=== PATIENT | female | born 1970 | race Two or more races ===

== ENCOUNTER 2024-06-24 14:03 | Inpatient (IN) | payer MEDICAID, OTHER ==
[~2024-06-24] VITALS: Ht 167.6 cm; Wt 72.0 kg
[2024-06-24 14:29] LABS: Basophils # (auto) 0.1 10 ^3/uL (0-0.2); Basophils % (auto) 1.2 % (0.0-2.0); Eosinophils # (auto) 0 10 ^3/uL (0-0.8); Eosinophils % (auto) 0.3 % (0.0-7.0); Hematocrit 40.5 % (36.0-46.0); Lymphocytes # (auto) 2.4 10 ^3/uL (0.4-5.4); Lymphocytes % (auto) 24.7 % (10.0-50.0); Mean Corpuscular Hemoglobin 30.4 pg (28.0-32.0); Mean Corpuscular Hgb Conc. 34.6 g/dL (32.0-36.0); Mean Corpuscular Volume 88.1 fL (80.0-100.0); Monocytes # (auto) 0.4 10 ^3/uL (0-1.3); Monocytes % (auto) 4.2 % (0.0-12.0); Neutrophils # (auto) 6.7 10 ^3/uL (1.6-8.6); Neutrophils % (auto) 69.6 % (37.0-80.0); Nucleated Red Blood Cells % 0.1 %; Platelet Count (auto) 279 10^3/uL (140-450); Red Cell Distribution Width 13.7 % (11.8-14.3); White Blood Cell 9.6 10^3/uL (4.4-10.8)
--- NOTE | 2024-06-24 14:31 | ED.PDOC ---
HPI Comments 53 y.o female presents to the ED for a chief complaint of sternal chest pain associated with SOB that started this morning while at work. Patient describes pain as a pressure/tightness sensation, is non radiating, constant, and rating a 8/10 on the pain scale. Patient denies any nausea, vomiting, diarrhea, palpitations, fever, chills, or cardiac history. PMH of ovarian cysts. Denies any substance, alcohol or tobacco use. 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 Family History Family History: Reviewed,noncontributory to illness, No family hx of Cancer, No family hx of DM, No family hx of Heart rebel, No family hx of HTN, No family hx ofKidney rebel, No family hx of Liver rebel, No family hx of Lung rebel, No family hx of Stroke Social History Smoker: Non-Smoker Alcohol: Denies ETOH Use Drugs: Denies Drug Use Lives In: Home Constitutional: denies: chills, diaphoresis, fatigue, fever, malaise, sweats, weakness, others EENTM: denies: blurred vision, double vision, ear bleeding, ear discharge, ear drainage, ear pain, ear ringing, eye pain, eye redness, hearing loss, mouth pain, mouth swelling, nasal discharge, nose bleeding, nose congestion, nose pain, photophobia, tearing, throat pain, throat swelling, voice changes, others Respiratory: reports: SOB at rest, shortness of breath; denies: cough, hemoptysis, orthopnea, SOB with excertion, stridor, wheezing, others Cardiovascular: reports: chest pain; denies: dizzy spells, diaphoresis, Dyspnea on exertion, edema, irregular heart beat, left arm pain, lightheadedness, palpitations, PND, syncope, others Gastrointestinal: denies: abdomen distended, abdominal pain, blood streaked bowels, constipated, diarrhea, dysphagia, difficulty swallowing, hematemesis, melena, nausea, poor appetite, poor fluid intake, rectal bleeding, rectal pain, vomiting, others Genitourinary: denies: abnormal vagina bleeding, burning, dyspareunia, dysuria, flank pain, frequency, hematuria, incontinence, pain, , vagina discharge, urgency, others Neurological: denies: dizziness, fainting, headache, left sided numbness, left sided weakness, numbness, paresthesia, pre-existing deficit, right sided numbness, right sided weakness, seizure, speech problems, tingling, tremors, weakness, others Musculoskeletal: denies: back pain, gout, joint pain, joint swelling, muscle pain, muscle stiffness, neck pain, others Integumetry: denies: bruises, change in color, change in hair/nails, dryness, laceration, lesions, lumps, rash, wounds, others Allergic/Immunocompromised: denies: Difficulty Healing, Frequent Infections, Hives, Itching, others Hematologic/Lymphatic: denies: anemia, blood clots, easy bleeding, easy bruising, swollen glands, others Endocrine: denies: excessive hunger, excessive sweating, excessive thirst, excessive urination, flushing, intolerance to cold, intolerance to heat, unexplained weight gain, unexplained weight loss, others Psychiatric: denies: anxiety, bipolar disorder, depression, hopeless, panic disorder, schizophrenia, sleepless, suicidal, others All Other Systems: Reviewed and Negative Physical Exam General Appearance: Moderate Distress HEENT: Normal ENT Inspection, Pharynx Normal, TMs Normal Neck: Full Range of Motion, Non-Tender, Normal, Normal Inspection Respiratory: Chest Non-Tender, Lungs Clear, No Accessory Muscle Use, No Respiratory Distress, Normal Breath Sounds Cardiovascular: No Edema, No JVD, No Murmur, No Gallop, Normal Peripheral Pulses, Regular Rate/Rhythm Breast Exam: Deferred Gastrointestinal: No Organomegaly, Non Tender, No Pulsatile Mass, Normal Bowel Sounds, Soft Genitalia: Deferred Pelvic: Deferred Rectal: Deferred Extremities: No calf tenderness, Normal capillary refill, Normal inspection, Normal range of motion, Non-tender, No pedal edema Musculoskeletal : Apperance: Normal Neurologic: Alert, 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 Was a procedure done?: No CP Differential Dx Differential Diagnosis: A-fib, A-Flutter, Angina, Anxiety / Panic Attack, Atrial Dysrhythmia, Electrolyte Disorder, Sinus Tachycardia Differential Diagnosis: Angina, Gastritis, Myocardial Infarction, Pericarditis X-Ray, Labs, Meds, VS Vital Signs Date Time Temp Pulse Resp B/P (MAP) Pulse Ox O2 Delivery O2 Flow Rate FiO2 06/24/24 14:16 98.4 94 18 152/95 (114) 99 Lab Test 06/24/24 14:23 Range/Units White Blood Count 9.6 4.4-10.8 10^3/uL Red Blood Count 4.60 4.0-5.20 10^6/uL Hemoglobin 14.0 12.2-16.2 g/dL Hematocrit 40.5 36.0-46.0 % Mean Corpuscular Volume 88.1 80.0-100.0 fL Mean Corpuscular Hemoglobin 30.4 28.0-32.0 pg Mean Corpuscular Hemoglobin Concent 34.6 32.0-36.0 g/dL Red Cell Distribution Width 13.7 11.8-14.3 % Platelet Count 279 140-450 10^3/uL Mean Platelet Volume 9.0 6.9-10.8 fL Neutrophils (%) (Auto) 69.6 37.0-80.0 % Lymphocytes (%) (Auto) 24.7 10.0-50.0 % Monocytes (%) (Auto) 4.2 0.0-12.0 % Eosinophils (%) (Auto) 0.3 0.0-7.0 % Basophils (%) (Auto) 1.2 0.0-2.0 % Neutrophils # (Auto) 6.7 1.6-8.6 10 ^3/uL Lymphocytes # (Auto) 2.4 0.4-5.4 10 ^3/uL Monocytes # (Auto) 0.4 0-1.3 10 ^3/uL Eosinophils # (Auto) 0 0-0.8 10 ^3/uL Basophils # (Auto) 0.1 0-0.2 10 ^3/uL Nucleated Red Blood Cells 0.1 % Prothrombin Time Pending Prothrombin Time INR Pending Activated Partial Thromboplast Time Pending Sodium Level Pending Potassium Level Pending Chloride Level Pending Carbon Dioxide Level Pending Anion Gap Pending Blood Urea Nitrogen Pending Creatinine Pending Glomerular Filtration Rate Calc Pending BUN/Creatinine Ratio Pending Serum Glucose Pending Calcium Level Pending Magnesium Level Pending Total Bilirubin Pending Aspartate Amino Transferase (AST) Pending Alanine Aminotransferase (ALT) Pending Alkaline Phosphatase Pending Troponin I High Sensitivity Pending B-Type Natriuretic Peptide Pending Total Protein Pending Albumin Pending Patient alert. Complaining of chest pain. Vitals stable. Answering all questions. Chest pain upon light work. WBC within normal limits. Hemoglobin within normal limits. Blood pressure slightly elevated. Was given clonidine. Was given aspirin. Was given nitro. Reviewed her history. Explained to the patient. Continue cardiac monitoring. Time of 1ST Reevaluation: 14:35 Reevaluation 1ST: Unchanged Consultation: Surgery Patient Education/Counseling: Diagnosis, Treatment, Prognosis Family Education/Counseling: No Family Present Departure 1 Departure Time of Disposition: 14:36 Impression: Primary Impression: Chest pain of unknown etiology Additional Impression: Hypertension Qualified Codes: I10 - Essential (primary) hypertension Disposition: ADMITTED INPATIENT Admit to: Med Surg Condition: Guarded Critical Care Note Critical Care Time?: Yes (45 min-critical care time only) Stability Stability form required: No Heart Score Heart Score: Heart Score Response (Comments) Value History Slightly Suspicious 0 EKG Normal 0 Age 45-64 1 Risk Factors 1 or 2 risk factors 1 Troponin Normal limit 0 Total 2 I personally scribed for JACK CANTU MD ([email or web address]) on 06/24/24 at 14:31. Electronically submitted by Desiree Smith ([facility]). JACK CANTU MD Jun 24, 2024 14:31
--- NOTE | 2024-06-24 14:46 | DVH ---
XY CHEST TWO VIEWS ROUTINE CLINICAL HISTORY: CHEST PAIN COMPARISON: None TECHNIQUE: Frontal and lateral view of the chest was obtained FINDINGS: Lines and Tubes: None Lungs: No focal consolidation. Pleura: No effusion. No pneumothorax. Cardiomediastinal contours: Unremarkable Bones: No acute osseous abnormality. IMPRESSION: 1. No acute cardiopulmonary disease.
[2024-06-24 14:49] LABS: INR 0.97 (0.9-1.15); Partial Thromboplastin Time 27.3 SEC (24.5-34.5); Prothrombin Time 10.3 sec (9.3-11.8)
[2024-06-24 14:53] LABS: Alanine Aminotransferase 42 U/L (7-40); Albumin 4.6 g/dL (3.2-4.8); Alkaline Phosphatase 151 U/L (46-116); Anion Gap 10 (5-15); Aspartate Aminotransferase 30 U/L (13-40); BUN/Creatinine Ratio 22.7 (10.0-20.0); Blood Urea Nitrogen 17 mg/dL (9-23); Calcium 9.7 mg/dL (8.7-10.4); Carbon Dioxide 24 mmol/L (20-31); Chloride 107 mmol/L (98-107); Glucose 151 mg/dL (74-106); Potassium 3.9 mmol/L (3.5-5.1); Sodium 141 mmol/L (136-145)
[2024-06-24 14:54] LABS: Bilirubin, Total 0.3 mg/dL (0.2-1.0); Total Protein 7.1 g/dL (5.7-8.2)
[2024-06-24 15:36] VITALS: PULSE 83; RESP 18; O2SAT 99
[2024-06-24] MEDS: ASPirin 325 MG TAB PO ONE (15:43)
[2024-06-24] MEDS: NITROGLYCERIN 0.4 MG SL TAB SL ONE (15:44)
[2024-06-24] MEDS ORDERED: NITROGLYCERIN 0.4 MG SL TAB SL PRN ×2 (18:45)
[2024-06-24] MEDS ORDERED: ONDANSETRON HCL 4 MG/2 ML VIAL IV PRN (18:45)
[2024-06-24] MEDS ORDERED: ACETAMINOPHEN 325 MG TAB PO PRN (18:45)
--- NOTE | 2024-06-24 18:51 | DVHHP2 ---
History of Present Illness Reason for Visit: Chest pain History of Present Illness 53-year-old female past medical history deny surgical history operations chief patient complains of midsternal chest pain that started this morning while she was at work. Patient described the pain as a pressure tightness sensation no radiation of the pain she took ibuprofen without help her symptoms she denies any nausea or vomiting diarrhea no palpitations no fever no chills. Nothing makes her pain better nothing makes it worse. When evaluating patient's labs and imaging CBC unremarkable. Glucose was slightly elevated at 151 chest x-ray unremarkable alkaline phosphatase 151 troponin was negative BNP was negative. With these findings we will admit patient ask for Cardiology consult Past Medical History Denies any medical history Past Surgical History Family History Reviewed, non-contributory to the management of this case. Past Social History The patient lives at home, denies smoking, alcohol or illicit drugs abuse. Review of Systems Constitutional: No: Fever, Chills, Sweats, Weakness, Malaise, Other Eyes: No: Pain, Vision change, Conjunctivae inflammation, Eyelid inflammation, Other, Redness ENT: No: Ear pain, Ear discharge, Nose pain, Nose discharge, Nose congestion, Mouth pain, Mouth swelling, Throat pain, Throat swelling, Other Respiratory: No: Cough, Dry, Shortness of breath, SOB with excertion, Wheezing, Hemoptysis, Pleuritic Pain, Sputum, Wheezing, Other Cardiovascular: Chest Pain; No: Palpitations, Orthopnea, Paroxysmal Noc. Dyspnea, Edema, Lt Headedness, Other Gastrointestinal: No: Nausea, Vomiting, Abdominal Pain, Diarrhea, Constipation, Melena, Hematochezia, Other Genitourinary: No Dysuria, No Frequency, No Incontinence, No Hematuria, No Retention, No Other Musculoskeletal: No: other, neck pain, shoulder pain, arm pain, back pain, hand pain, leg pain, foot pain Skin: No: Rash, Lesions, Jaundice, Bruising, Other Neurological: No: Weakness, Numbness, Incoordination, Change in speech, Confusion, Seizures, Other Allergies: Coded Allergies: NO KNOWN ALLERGIES (Unverified , 06/24/24) Exam Vital Signs Vital Signs Date Time Temp Pulse Resp B/P (MAP) Pulse Ox O2 Delivery O2 Flow Rate FiO2 06/24/24 17:36 70 16 133/64 (87) 99 06/24/24 15:36 99.1 99.1 06/24/24 15:36 Room Air* 0 21 General Appearance: Alert, Oriented X3, Cooperative, No acute distress HEENT: Atraumatic, PERRLA, EOMI, Mucous membr. moist/pink Respiratory: Clear to auscultation, Normal air movement Cardiovascular: Regular rate, Normal S1, Normal S2, No murmurs Abdominal: Normal bowel sounds, Soft, No tenderness, No hepatospenomegaly, No masses Extremities: No clubbing, No cyanosis, No edema, Normal pulses, No tenderness/swelling Skin: No rashes, No breakdown, No significant lesion Neuro: Normal speech, Strength at 5/5 X4 ext, Normal tone, Sensation intact, Cranial nerves 3-12 NL Psych/Mental Status: Mental status NL, Mood NL Labs/Xrays Chest x-ray unremarkable I reviewed labs, imaging CT scan abdomen pelvis, EKG and all diagnostic studies on this patient from ED records and the medical chart Labs Test 06/24/24 15:06 06/24/24 14:23 Range/Units Troponin I High Sensitivity < 3 L </=34 ng/L White Blood Count 9.6 4.4-10.8 10^3/uL Red Blood Count 4.60 4.0-5.20 10^6/uL Hemoglobin 14.0 12.2-16.2 g/dL Hematocrit 40.5 36.0-46.0 % Mean Corpuscular Volume 88.1 80.0-100.0 fL Mean Corpuscular Hemoglobin 30.4 28.0-32.0 pg Mean Corpuscular Hemoglobin Concent 34.6 32.0-36.0 g/dL Red Cell Distribution Width 13.7 11.8-14.3 % Platelet Count 279 140-450 10^3/uL Mean Platelet Volume 9.0 6.9-10.8 fL Neutrophils (%) (Auto) 69.6 37.0-80.0 % Lymphocytes (%) (Auto) 24.7 10.0-50.0 % Monocytes (%) (Auto) 4.2 0.0-12.0 % Eosinophils (%) (Auto) 0.3 0.0-7.0 % Basophils (%) (Auto) 1.2 0.0-2.0 % Neutrophils # (Auto) 6.7 1.6-8.6 10 ^3/uL Lymphocytes # (Auto) 2.4 0.4-5.4 10 ^3/uL Monocytes # (Auto) 0.4 0-1.3 10 ^3/uL Eosinophils # (Auto) 0 0-0.8 10 ^3/uL Basophils # (Auto) 0.1 0-0.2 10 ^3/uL Nucleated Red Blood Cells 0.1 % Prothrombin Time 10.3 9.3-11.8 sec Prothrombin Time INR 0.97 0.9-1.15 Activated Partial Thromboplast Time 27.3 24.5-34.5 SEC Sodium Level 141 136-145 mmol/L Potassium Level 3.9 3.5-5.1 mmol/L Chloride Level 107 98-107 mmol/L Carbon Dioxide Level 24 20-31 mmol/L Anion Gap 10 5-15 Blood Urea Nitrogen 17 9-23 mg/dL Creatinine 0.75 0.550-1.02 mg/dL Glomerular Filtration Rate Calc 96 >90 mL/min BUN/Creatinine Ratio 22.7 H 10.0-20.0 Serum Glucose 151 H 74-106 mg/dL Calcium Level 9.7 8.7-10.4 mg/dL Magnesium Level 2.0 1.6-2.6 mg/dL Total Bilirubin 0.3 0.2-1.0 mg/dL Aspartate Amino Transferase (AST) 30 13-40 U/L Alanine Aminotransferase (ALT) 42 H 7-40 U/L Alkaline Phosphatase 151 H 46-116 U/L B-Type Natriuretic Peptide 34.21 0-100 pg/mL Total Protein 7.1 5.7-8.2 g/dL Albumin 4.6 3.2-4.8 g/dL Assessment/Plan Assessment/Plan acute chest pain r/o nstemi ekg no stemi trop negative ordered Cards consult pending eval and recs ordered asa atorvastatin ordered Echocardiogram follow-up results ordered morphine as needed for pain, ordered nitro prn acute elevation in blood pressure without dx of htn ordered metoprolol Acute elevation in blood glucose If elevated in a.m. labs can consider Accu-Chek with AC and HS with sliding scale fen/ppx no dvt ppx since ptis ambulatory scd no gi ppx since no hx of gerds or gi bleed diet plan admit to tele cards consult Plan discussed with: Patient My Orders Orders - KEVON MCNEILL DNP Procedure Category Date Status Time Admit ADMIT 06/24/24 Verified 18:39 Code Status CODE 06/24/24 Verified 18:39 Vital Signs [facility] 06/24/24 Verified 18:39 Grain Broker [facility] 06/24/24 Verified 18:39 May Elevate Hob ____ [facility] 06/24/24 Verified Degrees 18:39 Cardiac DIET 06/25/24 Verified Diet-2gna,Lofat,Lochol Breakfast Aspirin Tablet PHA 06/25/24 Verified 10:00 Lipitor 40mg Hs PHA 06/24/24 Verified Hi-Intensity 22:00 Metoprolol Tartrate PHA 06/24/24 Verified Tablet (Lopressor Ta 22:00 Acetaminophen Tablet PHA 06/24/24 Verified (Tylenol Tablet) 18:45 Docusate Sodium PHA 06/25/24 Verified Capsule (Colace 10:00 Complete Blood Count LAB 06/25/24 Verified 04:00 Comprehensive LAB 06/25/24 Verified Metabolic Panel 04:00 Prothrombin Time W/ LAB 06/24/24 Verified INR 18:39 Echo 2d Mode Cardiac US 06/24/24 Verified DOP 18:39 Nitroglycerin [facility] 06/24/24 Verified Sublingual (Ntrostat 18:45 Ondansetron Hcl [facility] 06/24/24 Verified (Zofran) 18:45 Magnesium LAB 06/24/24 Verified 18:39 Electrocardigram EKG 06/24/24 Verified 18:39 Troponin-I Hs LAB 06/24/24 Verified 18:39 Cardiac [facility] 06/24/24 Verified Rehabilitation - Outpa Nitroglycerin [facility] 06/24/24 Verified Sublingual (Ntrostat 18:45 Stat Ekg For Chest [facility] 06/24/24 Verified Pain 18:39 Notify Md Of Changes [facility] 06/24/24 Verified From Base 18:39 Health Policy Manager For [facility] 06/24/24 Verified 24 Hours 18:39 Emergency Dysrhythmia [facility] 06/24/24 Verified Protocol 18:39 Rhythm Strips Once [facility] 06/24/24 Verified Every Shift 18:39 Oxygen By Nasal RT 06/24/24 Verified Cannula 18:39 * Cardiology Consult CONS 06/24/24 Verified 18:39 Date of Service: Jun 24, 2024 Billing Provider: KEVON MCNEILL DNP Common Visit Codes: [id number] INP/OBS CARE (HIGH) KEVON MCNEILL DNP Jun 24, 2024 18:50
--- NOTE | 2024-06-24 18:54 | ECG ---
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
[2024-06-24 19:13] LABS: Urine Bacteria None Seen /hpf (None Seen)
[2024-06-24 19:18] LABS: Urine Blood Negative /uL (Negative); Urine Clarity Clear (Clear); Urine Color Light-Yellow (Yellow); Urine Mucus FEW (None Seen); Urine Protein, UAD Negative (Negative); Urine Urobilinogen Normal (Negative); Urine WBC 4 /hpf (0 - 5); Urine pH 7.5 (5.0-9.0)
[2024-06-24 19:25] LABS: INR 0.97 (0.9-1.15); Prothrombin Time 10.3 sec (9.3-11.8)
[2024-06-24 19:45] VITALS: PULSE 72; RESP 18; O2SAT 98
[2024-06-24 22:17] VITALS: BP 131/60; PULSE 67; PULSE 76; RESP 18; RESP 20; TEMP 97.6; O2SAT 97; O2SAT 98
[2024-06-24 22:30] VITALS: BP 131/60; PULSE 76; RESP 20; TEMP 97.6; O2SAT 97
[2024-06-24] MEDS: ATORVASTATIN 20 MG TAB PO SCH (22:41)
[2024-06-24] MEDS: METOPROLOL TARTRATE 25 MG TAB PO SCH (22:42)
[2024-06-25] VITALS (8 sets, daily range): BP systolic 116–133; BP diastolic 56–72; PULSE 64–99; RESP 16–20; TEMP 97.5–98.2; O2SAT 93–98
[2024-06-25 05:35] LABS: Basophils # (auto) 0 10 ^3/uL (0-0.2); Basophils % (auto) 0.5 % (0.0-2.0); Eosinophils # (auto) 0.1 10 ^3/uL (0-0.8); Hematocrit 38.9 % (36.0-46.0); Hemoglobin 13.4 g/dL (12.2-16.2); Lymphocytes # (auto) 2.1 10 ^3/uL (0.4-5.4); Lymphocytes % (auto) 33.8 % (10.0-50.0); Mean Corpuscular Hemoglobin 30.5 pg (28.0-32.0); Mean Corpuscular Hgb Conc. 34.3 g/dL (32.0-36.0); Mean Corpuscular Volume 88.8 fL (80.0-100.0); Monocytes # (auto) 0.6 10 ^3/uL (0-1.3); Monocytes % (auto) 9.3 % (0.0-12.0); Neutrophils # (auto) 3.4 10 ^3/uL (1.6-8.6); Neutrophils % (auto) 55.4 % (37.0-80.0); Platelet Count (auto) 260 10^3/uL (140-450); Red Blood Cells 4.38 10^6/uL (4.0-5.20); Red Cell Distribution Width 13.6 % (11.8-14.3); White Blood Cell 6.1 10^3/uL (4.4-10.8)
[2024-06-25 05:52] LABS: Alanine Aminotransferase 35 U/L (7-40); Albumin 4.2 g/dL (3.2-4.8); Alkaline Phosphatase 130 U/L (46-116); Anion Gap 8 (5-15); Aspartate Aminotransferase 23 U/L (13-40); BUN/Creatinine Ratio 17.4 (10.0-20.0); Bilirubin, Total 0.8 mg/dL (0.2-1.0); Blood Urea Nitrogen 12 mg/dL (9-23); Calcium 9.5 mg/dL (8.7-10.4); Carbon Dioxide 25 mmol/L (20-31); Chloride 108 mmol/L (98-107); Glucose 96 mg/dL (74-106); Potassium 3.8 mmol/L (3.5-5.1); Sodium 141 mmol/L (136-145); Total Protein 6.7 g/dL (5.7-8.2)
[2024-06-25] MEDS: DOCUSATE SOD 100 MG CAP PO SCH (08:51)
[2024-06-25] MEDS: ASPirin 81 mg TAB PO SCH (08:52)
--- NOTE | 2024-06-25 12:22 | DVHINCON2 ---
Date Seen: Jun 25, 2024 Referring Physician Enrrique SHIELDS Reason for Consultation Chest Pain History of Present Illness 53-year-old female with no significant past medical history presented to the hospital chest pain. Patient states that she awoke in the morning started having some retrosternal, pressure tightness, nonradiating chest pain with pounding palpitations. Patient states pain associated with some shortness of breath at times. Patient has been having left jaw pain due to infected to and has been taking ibuprofen and noted she started to have increased shortness of breath with exertion for a couple weeks now. Denies taking any medication for her heart nor having any previous cardiac workup in the past. Denies any significant family cardiac history. Patient also denies any alcohol, tobacco, or illicit drug use. Upon evaluation in the ER troponin trending normal x3. CXR negative for any cardiopulmonary disease. EKG reviewed and shows sinus rhythm at 97 beats per minute, no acute ST abnormality noted. Past Medical History Denies previous medical history Past Surgical History Denies previous surgeries Family History: Hypertension G8 FATHER Malignant neoplasm of breast G8 MOTHER Family History Denies pertinent family cardiac history Social History Denies alcohol, tobacco, or illicit drug use Allergies: Coded Allergies: NO KNOWN ALLERGIES (Unverified , 06/24/24) Current Medications Current Medications Medications (Trade) Dose Ordered Sig/Varinder Route PRN Reason Start Time Stop Time Status Last Admin Aspirin 81 mg DAILY PO 06/25/24 10:00 06/25/24 08:52 Atorvastatin Calcium (Lipitor) 40 mg HS PO 06/24/24 22:00 06/24/24 22:41 Metoprolol Tartrate (Lopressor Tablet) 12.5 mg Q12HR PO 06/24/24 22:00 06/25/24 08:52 Acetaminophen (Tylenol Tablet) 325 mg Q4HP PRN PO FOR HEADACHE 06/24/24 18:45 Docusate Sodium (Colace Capsule) 100 mg DAILY PO 06/25/24 10:00 06/25/24 08:51 Nitroglycerin (Ntrostat Sublingual) 0.4 mg Q5MINP PRN SL FOR CHEST PAIN 06/24/24 18:45 Ondansetron HCl (Zofran) 4 mg Q4HP PRN IV NAUSEA / VOMITING 06/24/24 18:45 Nitroglycerin (Ntrostat Sublingual) 0.4 mg Q5MINP PRN SL FOR CHEST PAIN 06/24/24 18:45 06/24/24 18:57 DC Review of Systems Constitutional: No: Fever, Chills, Sweats, Weakness, Malaise, Other Eyes: No: Pain, Vision change, Conjunctivae inflammation, Eyelid inflammation, Other, Redness ENT: No: Ear pain, Ear discharge, Nose pain, Nose discharge, Nose congestion,, Mouth swelling, Throat pain, Throat swelling, Other positive: Mouth pain Respiratory: No: Cough, Dry, Shortness of breath, SOB with exertion, Wheezing, Hemoptysis, Pleuritic Pain, Sputum, Wheezing, Other Cardiovascular: ; No: , Orthopnea, Paroxysmal Noc. Dyspnea, Edema, Lt H eadedness, Other positive: Chest Pain Palpitations Gastrointestinal: No: Nausea, Vomiting, Abdominal Pain, Diarrhea, Constipation, Melena, Hematochezia, Other Genitourinary: No Dysuria, No Frequency, No Incontinence, No Hematuria, No Retention, No Other Musculoskeletal: neck pain; No: other, shoulder pain, arm pain, back pain, hand pain, leg pain, foot pain Skin: No: Rash, Lesions, Jaundice, Bruising, Other Neurological: Other (Dizziness, headache.); No: Weakness, Numbness, In coordination, Change in speech, Confusion, Seizures Vital Signs Vital Signs Date Time Temp Pulse Resp B/P (MAP) Pulse Ox O2 Delivery O2 Flow Rate FiO2 06/25/24 09:00 97.9 64 20 123/69 (87) 97 97.9 06/24/24 22:17 Room Air* 0 21 Physical Exam Constitutional: No: Fever, Chills, Sweats, Weakness, Malaise, Other Eyes: No: Pain, Vision change, Conjunctivae inflammation, Eyelid inflammation, Other, Redness ENT: No: Ear pain, Ear discharge, Nose pain, Nose discharge, Nose congestion, Mouth pain, Mouth swelling, Throat pain, Throat swelling, Other Respiratory: No: Cough, Dry, Shortness of breath, SOB with exertion, Wheezing, Hemoptysis, Pleuritic Pain, Sputum, Wheezing, Other Cardiovascular: ; No: Chest Pain Palpitations, Orthopnea, Paroxysmal Noc. Dyspnea, Edema, Lt Headedness, Other Gastrointestinal: No: Nausea, Vomiting, Abdominal Pain, Diarrhea, Constipation, Melena, Hematochezia, Other Genitourinary: No Dysuria, No Frequency, No Incontinence, No Hematuria, No Retention, No Other Musculoskeletal: neck pain; No: other, shoulder pain, arm pain, back pain, hand pain, leg pain, foot pain Skin: No: Rash, Lesions, Jaundice, Bruising, Other Neurological: Other (Dizziness, headache.); No: Weakness, Numbness, Incoordination, Change in speech, Confusion, Seizures Labs/Diagnostic Data Labs Test 06/25/24 04:52 06/24/24 18:51 06/24/24 18:20 06/24/24 14:23 Range/Units White Blood Count 6.1 # 4.4-10.8 10^3/uL Red Blood Count 4.38 4.0-5.20 10^6/uL Hemoglobin 13.4 12.2-16.2 g/dL Hematocrit 38.9 36.0-46.0 % Mean Corpuscular Volume 88.8 80.0-100.0 fL Mean Corpuscular Hemoglobin 30.5 28.0-32.0 pg Mean Corpuscular Hemoglobin Concent 34.3 32.0-36.0 g/dL Red Cell Distribution Width 13.6 11.8-14.3 % Platelet Count 260 140-450 10^3/uL Mean Platelet Volume 9.3 6.9-10.8 fL Neutrophils (%) (Auto) 55.4 37.0-80.0 % Lymphocytes (%) (Auto) 33.8 10.0-50.0 % Monocytes (%) (Auto) 9.3 0.0-12.0 % Eosinophils (%) (Auto) 1.0 0.0-7.0 % Basophils (%) (Auto) 0.5 0.0-2.0 % Neutrophils # (Auto) 3.4 1.6-8.6 10 ^3/uL Lymphocytes # (Auto) 2.1 0.4-5.4 10 ^3/uL Monocytes # (Auto) 0.6 0-1.3 10 ^3/uL Eosinophils # (Auto) 0.1 0-0.8 10 ^3/uL Basophils # (Auto) 0 0-0.2 10 ^3/uL Nucleated Red Blood Cells 0.0 % Sodium Level 141 136-145 mmol/L Potassium Level 3.8 3.5-5.1 mmol/L Chloride Level 108 H 98-107 mmol/L Carbon Dioxide Level 25 20-31 mmol/L Anion Gap 8 5-15 Blood Urea Nitrogen 12 9-23 mg/dL Creatinine 0.69 0.550-1.02 mg/dL Glomerular Filtration Rate Calc 104 >90 mL/min BUN/Creatinine Ratio 17.4 10.0-20.0 Serum Glucose 96 74-106 mg/dL Calcium Level 9.5 8.7-10.4 mg/dL Total Bilirubin 0.8 0.2-1.0 mg/dL Aspartate Amino Transferase (AST) 23 13-40 U/L Alanine Aminotransferase (ALT) 35 7-40 U/L Alkaline Phosphatase 130 H 46-116 U/L Total Protein 6.7 5.7-8.2 g/dL Albumin 4.2 3.2-4.8 g/dL Prothrombin Time 10.3 9.3-11.8 sec Prothrombin Time INR 0.97 0.9-1.15 Magnesium Level 2.2 1.6-2.6 mg/dL Troponin I High Sensitivity 3 L </=34 ng/L Urine Color Light-yellow Yellow Urine Clarity Clear Clear Urine pH 7.5 5.0-9.0 Urine Specific [place] 1.020 1.001-1.035 Urine Protein Negative Negative Urine Ketones Negative Negative Urine Blood Negative Negative /uL Urine Nitrite Negative Negative Urine Bilirubin Negative Negative Urine Urobilinogen Normal Negative mg/dL Urine Leukocyte Esterase 1+ Negative /uL Urine RBC 3 0 - 4 /hpf Urine WBC 4 0 - 5 /hpf Urine Squamous Epithelial Cells Few <5 /hpf Urine Bacteria None seen None Seen /hpf Urine Mucus Few None Seen Urine Glucose Normal Normal mg/dL Activated Partial Thromboplast Time 27.3 24.5-34.5 SEC B-Type Natriuretic Peptide 34.21 0-100 pg/mL Assessment (Dr. Rosales) * Chest pain - troponin negative. EKG negative for acute ischemic changes. Follow-up echo. Lipid panel ordered. Continue aspirin and statin. Given comorbidities with diabetes, HTN, and HLD Recommend cardiac catheterization +/- PCI. All risks, benefits, and alternatives of cardiac catheterization explained to the patient including the risk of stroke, IA, , coronary perforation, pericardial tamponade, contrast induced nephropathy, need for emergent CABG, mechanical support, mechanical ventilation, and bleeding from vascular complications from the procedure. Patient is agreeable to proceed with procedure. NPO after midnight * Palpitations - continue tele monitoring. Recommend Outpatient event monitoring. * HTN - on metoprolol. Continue trending BP. * Elevated glucose - hemoglobin A1c pending. Case Discussed with Dr Rosales. Due to comorbidities and symptoms, plan for ischemic workup with coronary angiogram in a.m.. NPO after midnight. Critical care, time spent: 35 minutes This medical document was created using an electronic medical record system with voice recognition software and computerized dictation system. Although this document has been carefully reviewed, there might still be some phonetic and typographical errors. Occasional wrong-word or ``sound-alike substitutions may have occurred due to the inherent limitations of voice recognition software. These areas are purely typographical due to imperfections of the software programs and do not reflect any compromise in the patient's medical care. Please read the chart carefully and recognize, using context, where these substitutions have occurred. Plan discussed with: Patient, Son Date of Service: Jun 25, 2024 Billing Provider: ELEAZAR ROSALES MD Cardiology Common Codes: [id number] INP/OBS CARE (High), [id number] CARE 30-74 MIN SILAS MONDRAGON AGACNP Jun 25, 2024 12:22
[2024-06-25 12:44] LABS: Triglycerides 113 mg/dL (< 150)
[2024-06-25 12:45] LABS: LDL Cholesterol 82 mg/dL (< 100)
[2024-06-25 12:46] LABS: Cholesterol 151 mg/dL (< 200); HDL Cholesterol 53 mg/dL (40-59)
--- NOTE | 2024-06-25 13:15 | DVHSR ---
APPROVED REPORT EXAM: Two-dimensional and M-mode echocardiogram with Doppler and color Doppler. Blood Pressure: 116/68 mmHg INDICATION Chest Pain RISK FACTORS Height: 5' 6", Weight: 160 DIMENSIONS LVDd4.4 (3.8-5.7cm)LA (2D)3.2 (1.9-4.0cm)Aortic Root2.8 (2.0-3.7cm) LVDs3.3 (2.5-4.0cm)LA (MM) (1.9-4.0cm)Aortic Cusp Exc1.4 (1.5-2.0cm) EF (%) 50.0 (55-70%)Rt. Atrium3.4 (1.9-4.0cm)Asc. Aorta cm IVSd0.9 (0.7-1.1cm)RV (D) (1.8-2.4cm) PWd0.7 (0.7-1.1cm) Mitral Valve MitralMitral Stenosis E wave1.10m/sMV Mean GR.mmHg A wave0.90m/sMV Peak GR.mmHg E/A ratio1.22D MVAcm2 Aortic Valve Aortic ValveAortic Stenosis V10.60m/Noman Mean GR.6mmHg V21.50m/Noman Peak GR.10mmHg LVOT Diameter2.0 (1.8-2.4cm)Doppler AVA1.26cm2 Pulmonic Valve V20.50m/s Conclusion Normal left ventricular size and dimension. Normal left ventricular systolic function estimated ejec tion fraction 50%. There is a grade diastolic dysfunction. Normal right ventricular size and dimension. Normal right ventricular systolic function. Normal biatrial size and dimension. Normal aortic valve structure and function. Normal mitral valve structure and function. Normal tricuspid valve structure and function. The pulmonary valve is grossly normal. No pericardial effusion.
--- NOTE | 2024-06-25 17:17 | DVHPNRES ---
Progress Note Date Seen: Jun 25, 2024 Resident Creating Document: SHA SUN CHIP Has the PT tested + for MRSA If YES, has PT been informed?: No Medical Necessity Reason Pt with a Central, PICC or Fol: No Subjective Review of Systems This is a 53-year-old female with no significant past medical history who presented to the hospital with chest pain. The pain started 2 hours before coming to the ED. It was central retrosternal, pressure-like tightness, non- radiating, and rated 9/10 in severity, with no obvious exacerbating or relieving factors. The patient states the pain was associated with some shortness of breath at times. She has been having left jaw pain due to an infected tooth and has been taking ibuprofen. She noted increased shortness of breath with exertion for a couple of weeks now. The patient denies fever, cough, headache, or any other symptoms. Past Medical History: As per the patient, she was diagnosed with colon cancer via colonoscopy 1 year ago at [facility], but no records are available Past Surgical History: Full-term Family History: Noncontributory Social History: Lives with family, denies smoking, alcohol, or any drug use Home Medications: None Allergic History: Noncontributory On physical examination in the ED, there was mild chest tenderness; otherwise, the examination was within normal limits. Laboratory studies were significant for creatinine at 1.08, otherwise within normal limits. BNP was 34, and serial troponin I levels were within normal limits. EKG showed normal sinus rhythm with no significant ST or T-wave changes. Chest X-ray showed bilateral lower ground- glass opacities. The patient was seen and examined at the bedside. She is feeling better since admission but is still complaining of mild chest pain. Patient reports: No new complaints Changes from previous H/P or p: No Changes Objective vital signs Vital Sign Date Time Temp Pulse Resp B/P (MAP) Pulse Ox O2 Delivery O2 Flow Rate FiO2 06/25/24 13:23 97.9 66 20 128/70 (89) 93 97.9 06/25/24 08:00 Room Air* 0 21 Total Intake and Output 06/24/24 06/24/24 06/25/24 15:00 23:00 07:00 Intake Total 200 ml Balance 200 ml medications Current Medications Medications Dose Ordered Sig/Varinder Route Start Time Stop Time Status Last Admin Dose Admin Aspirin 81 mg DAILY PO 06/25/24 10:00 06/25/24 08:52 81 MG Atorvastatin Calcium 40 mg HS PO 06/24/24 22:00 06/24/24 22:41 40 MG Metoprolol Tartrate 12.5 mg Q12HR PO 06/24/24 22:00 06/25/24 08:52 12.5 MG Acetaminophen 325 mg Q4HP PRN PO 06/24/24 18:45 Docusate Sodium 100 mg DAILY PO 06/25/24 10:00 06/25/24 08:51 100 MG Nitroglycerin 0.4 mg Q5MINP PRN SL 06/24/24 18:45 Ondansetron HCl 4 mg Q4HP PRN IV 06/24/24 18:45 Examination General Appearance: Alert, Oriented X3, Cooperative, No acute distress HEENT: Atraumatic, PERRLA, EOMI, Mucous membrane moist/pink Respiratory: Clear to auscultation, Normal air movement Cardiovascular: Regular rate, Normal S1, Normal S2, No murmurs, mild chest wall tenderness Abdominal: Normal bowel sounds, Soft, No tenderness, No hepatospenomegaly, No masses Extremities: No clubbing, No cyanosis, No edema, Normal pulses, No tenderness/swelling Skin: No rashes, No breakdown, No significant lesion Examination: GENERAL:Normal, HEENT:Normal, NECK:Normal, LUNGS:Normal laboratory and microbiology Laboratory Tests 06/25/24 04:52 Test 06/25/24 04:52 Range/Units Serum Glucose 96 74-106 mg/dL Labs and/or images reviewed: Labs reviewed by me, Image(s) reviewed by me Problem List/Assessment/Plan Problem List/Assessment/Plan Chest pain, to rule out ACS EKG shows normal sinus rhythm with no significant ST or T-wave change Serial troponin I is within normal limits Cardiology is on the board, recommended angiography and possible PCI for tomorrow Echocardiogram shows, normal left ventricular systolic function estimated ejection fraction 50%. There is a grade diastolic dysfunction Continue aspirin 81 mg Continue atorvastatin 40 mg Lovenox 60 Continue telemetry Hypertension, normalized Continue metoprolol Colon cancer Per patient, she was diagnosed with colon cancer with colonoscopy 1 year back Follow up at outpatient basis Hyperglycemia Hb A1c is at 5.2 Monitor glucose Hyperchloremia Monitoring DVT prophylaxis Lovenox Diet NPO from midnight, planned for the left heart catheterization Code status Full Code Case discussed with Dr. Wetzel Plan discussed with: Patient, Daughter, Son, Other (RN) Date of Service: Jun 25, 2024 Billing Provider: WEST WETZEL DO Common Visit Codes: [id number] INP/OBS CARE(HIGH) SHEREENHIRAMMILANA GRESHAMPJ RESSUSY Jun 25, 2024 17:17 WEST WETZEL DO Jun 28, 2024 10:22
[2024-06-25] MEDS: ENOXAPARIN SOD 40 MG/0.4 ML SYRINGE SC ONE (18:27)
[2024-06-26] VITALS (12 sets, daily range): BP systolic 108–132; BP diastolic 63–80; PULSE 56–77; RESP 12–21; TEMP 97.5–98.3; O2SAT 94–100
[2024-06-26 05:21] LABS: Basophils # (auto) 0 10 ^3/uL (0-0.2); Basophils % (auto) 0.3 % (0.0-2.0); Eosinophils # (auto) 0.1 10 ^3/uL (0-0.8); Eosinophils % (auto) 0.8 % (0.0-7.0); Hematocrit 41.6 % (36.0-46.0); Hemoglobin 13.7 g/dL (12.2-16.2); Lymphocytes # (auto) 2.5 10 ^3/uL (0.4-5.4); Mean Corpuscular Hemoglobin 29.6 pg (28.0-32.0); Mean Corpuscular Hgb Conc. 32.9 g/dL (32.0-36.0); Mean Corpuscular Volume 89.8 fL (80.0-100.0); Monocytes # (auto) 0.7 10 ^3/uL (0-1.3); Monocytes % (auto) 8.1 % (0.0-12.0); Neutrophils % (auto) 60.8 % (37.0-80.0); Nucleated Red Blood Cells % 0.1 %; Platelet Count (auto) 277 10^3/uL (140-450); Red Blood Cells 4.64 10^6/uL (4.0-5.20); Red Cell Distribution Width 13.7 % (11.8-14.3); White Blood Cell 8.2 10^3/uL (4.4-10.8)
[2024-06-26 05:40] LABS: Alanine Aminotransferase 33 U/L (7-40); Albumin 4.4 g/dL (3.2-4.8); Alkaline Phosphatase 138 U/L (46-116); Anion Gap 6 (5-15); Aspartate Aminotransferase 19 U/L (13-40); Blood Urea Nitrogen 19 mg/dL (9-23); Calcium 9.4 mg/dL (8.7-10.4); Carbon Dioxide 27 mmol/L (20-31); Chloride 106 mmol/L (98-107); Glucose 97 mg/dL (74-106); Potassium 4.1 mmol/L (3.5-5.1); Sodium 139 mmol/L (136-145)
[2024-06-26 05:41] LABS: Bilirubin, Total 0.7 mg/dL (0.2-1.0); INR 1.01 (0.9-1.15); Partial Thromboplastin Time 28.9 SEC (24.5-34.5); Prothrombin Time 10.7 sec (9.3-11.8); Total Protein 6.5 g/dL (5.7-8.2)
[2024-06-26] MEDS: ENOXAPARIN SOD 40 MG/0.4 ML SYRINGE SC SCH (10:00)
[2024-06-26] MEDS: MIDAZOLAM HCL 2MG/2ML 2ml VIAL (1mg/ml) ONE (10:07)
[2024-06-26] MEDS: LIDOCAINE 2%HCL (LOCAL ANESTH.) INJ 20ML MDV ONE (10:07)
[2024-06-26] MEDS: IODIXANOL 320MG/ML 100ML BTL IV ONE (10:07)
[2024-06-26] MEDS: ANGIOMAX 250 MG VIAL IV ONE (10:07)
[2024-06-26] MEDS: VERAPAMIL 2.5MG/ML INJ 2ML VIAL IV ONE (10:07)
[2024-06-26] MEDS: SODIUM CHL 0.9% 0 ML ONE (10:07)
[2024-06-26] MEDS: fentaNYL CITRATE 100 MCG/2 ML VL ONE (10:07)
[2024-06-26] MEDS: HEPARIN SODIUM (PORCINE) 5000 UNITS/ML 1ML VIAL ONE (10:07)
--- NOTE | 2024-06-26 10:11 | DVHOP2 ---
Operative Report -Cardiology Report Details Date: 06/26/24 Preop Diagnosis: Angina pectoralis. Postop Diagnosis: No significant coronary artery disease was noted in the coronary angiography that was done today. Patient might have underlying microvascular disease versus other causes of noncardiac chest pain Surgeon: Miguel A Rosales MD Anesthesiologist: Conscious sedation using25 mcg of fentanyl as well as a mg IV midazolam. It was given under direct supervision of the primary cobbler apprentice myself in the pr esence of the attending nurses. Patient was monitored for total of35 minutes without obvious complication. Anesthesia: Local Consent: The patient was informed of the risks and benefits of the procedure. These include but are not limited to complications of anesthesia, postoperative infection, incomplete relief of symptoms, recurrence of symptoms, damage to blood vessels, nerves and tendons, deep venous thrombosis, pulmonary embolism and possible need for repeat surgery in the future. Indications for Surgery: 53-year-old female with no significant past medical history presented to the hospital chest pain. Patient states that she awoke in the morning started having some retrosternal, pressure tightness, nonradiating chest pain with pounding palpitations. Patient states pain associated with some shortness of breath at times. Patient has been having left jaw pain due to infected to and has been taking ibuprofen and noted she started to have increased shortness of breath with exertion for a couple weeks now. Denies taking any medication for her heart nor having any previous cardiac workup in the past. Denies any significant family cardiac history. Patient also denies any alcohol, tobacco, or illicit drug use. Upon evaluation in the ER troponin trending normal x3. CXR negative for any cardiopulmonary disease.EKG reviewed and shows sinus rhythm at 97 beats per minute, no acute ST abnormality noted. Name of Procedure Performed 1. Left heart catheterization with left ventricular end-diastolic pressure measurement. 2. Selective right and left coronary angiography utilizing right transradial approach. 3. Conscious sedation using25 mcg of fentanyl as well as a mg IV midazolam. Procedure Details Procedure Details: Procedure note: After informed consent was obtained, risks, benefits, complications, and alternatives were discussed in details with the patient who agrees to have the procedure done. The beginning of the procedure, the right wrist and right groin area were prepped and draped in regular sterile fashion. Patient was then brought in the propagator laborer with he received conscious sedation using25 mcg of fentanyl as well as a mg IV midazolam. Patient received a total of 2 cc of 1% xylocaine to the right wrist area before a six Vincentian sheath was placed using modified Seldinger technique without difficulty. A cocktail of 2.5 mg of verapamil as well as 100 mcg of nitroglycerin was given intra-arterial to prevent vasospasm findings were as follows: 1. Left heart catheterization with left ventricular end-diastolic pressure measurement: With the help of a tiger five Vincentian catheter as well as a J-tip wire we were able to cross the aortic valve measured left ventricular end-diastolic pressure which was normal at 3 mm of mercury. There was no gradient across the aortic valve on the pullback. 2. Selective right and left coronary angiography utilizing right transradial approach: 1. Right coronary artery comes off the right coronary coronary cusp, it is non dominant system it has no significant disease. 2. Left main comes off the left coronary cusp it is widely patent without signi ficant stenosis. It bifurcates into a large left anterior descending artery and a dominant left circumflex artery. 3. The left anterior descending artery is large with a transapical course it sized large diagonal branch, it has mild minimal atherosclerotic plaquing without significant stenosis. 4. The left circumflex artery it is large dominant system it bifurcates into two large obtuse marginal branches and multiple posterolateral branches of the distal end. There was no significant atherosclerotic plaquing or stenosis. Impression and plan: 1. No significant coronary artery disease was noted in the study done today. 2. Patient might have underlying microvascular disease from longstanding diabetes mellitus and other risk factors. 3. Patient would need aggressive medical therapy for risk factors including controlling hypertension, as well as dyslipidemia and diabetes mellitus. Condition Good HA Clinical Frailty Scale CSHA Clinical Frailty Scale: Well Dominance Dominance: Left Disposition MIGUEL A ROSALES MD Jun 26, 2024 10:11
--- NOTE | 2024-06-26 15:13 | DVHPNRES ---
Progress Note Date Seen: Jun 26, 2024 Resident Creating Document: SHA SUN CHIP Has the PT tested + for MRSA If YES, has PT been informed?: No Medical Necessity Reason Pt with a Central, PICC or Fol: No Subjective Review of Systems The patient was seen and examined at the bedside. She is feeling better since admission . Coronary angiography performed and no significant coronary artery disease was noted in the study done today. Patient reports: Feels better Changes from previous H/P or p: Changes Objective vital signs Vital Sign Date Time Temp Pulse Resp B/P (MAP) Pulse Ox O2 Delivery O2 Flow Rate FiO2 06/26/24 13:00 97.7 67 17 131/71 (91) 97 97.7 06/25/24 20:00 Room Air* 0 21 Total Intake and Output 06/25/24 06/25/24 06/26/24 15:00 23:00 07:00 Intake Total 240 ml 400 ml 700 ml Balance 240 ml 400 ml 700 ml medications Current Medications Medications Dose Ordered Sig/Varinder Route Start Time Stop Time Status Last Admin Dose Admin Aspirin 81 mg DAILY PO 06/25/24 10:00 06/25/24 08:52 81 MG Atorvastatin Calcium 40 mg HS PO 06/24/24 22:00 06/25/24 21:42 40 MG Metoprolol Tartrate 12.5 mg Q12HR PO 06/24/24 22:00 06/25/24 21:43 12.5 MG Acetaminophen 325 mg Q4HP PRN PO 06/24/24 18:45 Docusate Sodium 100 mg DAILY PO 06/25/24 10:00 06/25/24 08:51 100 MG Nitroglycerin 0.4 mg Q5MINP PRN SL 06/24/24 18:45 Ondansetron HCl 4 mg Q4HP PRN IV 06/24/24 18:45 Enoxaparin Sodium 40 mg DAILY SC 06/26/24 10:00 Examination: GENERAL:Normal, HEENT:Normal, LUNGS:Normal, CVS:Normal, ABDOMEN:Normal, NEURO:Normal laboratory and microbiology Laboratory Tests 06/26/24 04:26 Test 06/26/24 04:26 Range/Units Serum Glucose 97 74-106 mg/dL Labs and/or images reviewed: Labs reviewed by me, Image(s) reviewed by me Problem List/Assessment/Plan Problem List/Assessment/Plan Chest pain, to rule out ACS EKG shows normal sinus rhythm with no significant ST or T-wave change Serial troponin I is within normal limits Cardiology is on the board, Coronary angiography performed and no significant coronary artery disease was noted Echocardiogram shows, normal left ventricular systolic function estimated ejection fraction 50%. There is a grade diastolic dysfunction Continue aspirin 81 mg Continue atorvastatin 40 mg Continue telemetry Hypertension, normalized Continue metoprolol Colon cancer Per patient, she was diagnosed with colon cancer with colonoscopy 1 year back Follow up at outpatient basis Hyperglycemia Hb A1c is at 5.2 Monitor glucose Hyperchloremia Monitoring DVT prophylaxis Lovenox Diet NPO from midnight, planned for the left heart catheterization Code status Goals of care discussed with the patient for 20 minutes; Full Code Case discussed with Dr. Garcia Plan discussed with: Patient, Daughter (RN), Other (Nurse) My Orders My Orders Orders - SHA SUN Procedure Category Date Status Time Enoxaparin Sodium PHA 06/26/24 In Process (Lovenox) 10:00 Addendum Addendum Addendum I was physically present for the swan portions of the service provided to patient by THE RESIDENT. I have reviewed the documentation, discussed the case with resident and agree with the resident's documentation except as noted. Also the patient's clinical case was discussed with the patient's nurse. This medical document was created using an electronic medical record system with computerized dictation system. Although this document has been carefully reviewed, there might still be some phonetic and typographical errors. These areas are purely typographical due to imperfections of the software programs, and do not reflect any compromise in the patient's medical care. Late signature. Date of Service: Jun 26, 2024 Billing Provider: MOLINA GARCIA MD Common Visit Codes: [id number] INP/OBS CARE(HIGH) Secondary Visit Codes: [id number] CARE PLAN 30 MINUTES (20 minutes) SHA SUN Jun 26, 2024 15:13 MOLINA GARCIA MD Jun 27, 2024 08:54
--- NOTE | 2024-06-26 15:15 | ECG ---
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
[2024-06-26 21:27] LABS: Amphetamine Screen, Urine Neg (NEGATIVE); Barbiturate Scree,Urine Neg (NEGATIVE); Benzodiazephine Screen, Urine Pos (NEGATIVE); Cannabinoid Screen, Urine Neg (NEGATIVE); Cocaine Screen, Urine Neg (NEGATIVE); Opiate Scree,Urine Neg (NEGATIVE)
[2024-06-26 21:28] LABS: Phencyclidine Screen, Urine Neg (NEGATIVE)
[2024-06-26 21:39] LABS: COVID19 ANTIGEN SOFIA FIA NEGATIVE (NEGATIVE)
[2024-06-27] VITALS (7 sets, daily range): BP systolic 98–118; BP diastolic 45–83; PULSE 60–83; RESP 17–20; TEMP 36.6; O2SAT 95–100
[2024-06-27] MEDS ORDERED: MET25T PO (05:49)
--- NOTE | 2024-06-27 07:05 | DVHDSRES ---
Discharge Summary Date of Admission Resident Creating Document: SHA SUN Jun 24, 2024 at 18:39 Date of Discharge: Jun 27, 2024 Admitting Diagnosis Acute chest pain Labs/Diagnostic Data: Laboratory Results Test 06/26/24 21:00 06/26/24 20:45 06/26/24 04:26 06/25/24 04:52 Urine Opiates Screen Neg (NEGATIVE) Urine Fentanyl Screen Neg (NEGATIVE) Urine Barbiturates Screen Neg (NEGATIVE) Urine Phencyclidine Screen Neg (NEGATIVE) Urine Amphetamines Screen Neg (NEGATIVE) Urine Benzodiazepines Screen Pos (NEGATIVE) Urine Cocaine Screen Neg (NEGATIVE) Urine Cannabinoids Screen Neg (NEGATIVE) SARS-CoV-2 Antigen (Rapid) Negative (NEGATIVE) White Blood Count 8.2 10^3/uL (4.4-10.8) Red Blood Count 4.64 10^6/uL (4.0-5.20) Hemoglobin 13.7 g/dL (12.2-16.2) Hematocrit 41.6 % (36.0-46.0) Mean Corpuscular Volume 89.8 fL (80.0-100.0) Mean Corpuscular Hemoglobin 29.6 pg (28.0-32.0) Mean Corpuscular Hemoglobin Concent 32.9 g/dL (32.0-36.0) Red Cell Distribution Width 13.7 % (11.8-14.3) Platelet Count 277 10^3/uL (140-450) Mean Platelet Volume 9.6 fL (6.9-10.8) Neutrophils (%) (Auto) 60.8 % (37.0-80.0) Lymphocytes (%) (Auto) 30.0 % (10.0-50.0) Monocytes (%) (Auto) 8.1 % (0.0-12.0) Eosinophils (%) (Auto) 0.8 % (0.0-7.0) Basophils (%) (Auto) 0.3 % (0.0-2.0) Neutrophils # (Auto) 5.0 10 ^3/uL (1.6-8.6) Lymphocytes # (Auto) 2.5 10 ^3/uL (0.4-5.4) Monocytes # (Auto) 0.7 10 ^3/uL (0-1.3) Eosinophils # (Auto) 0.1 10 ^3/uL (0-0.8) Basophils # (Auto) 0 10 ^3/uL (0-0.2) Nucleated Red Blood Cells 0.1 % Prothrombin Time 10.7 sec (9.3-11.8) Prothrombin Time INR 1.01 (0.9-1.15) Activated Partial Thromboplast Time 28.9 SEC (24.5-34.5) Sodium Level 139 mmol/L (136-145) Potassium Level 4.1 mmol/L (3.5-5.1) Chloride Level 106 mmol/L (98-107) Carbon Dioxide Level 27 mmol/L (20-31) Anion Gap 6 (5-15) Blood Urea Nitrogen 19 mg/dL (9-23) Creatinine 0.73 mg/dL (0.550-1.02) Glomerular Filtration Rate Calc 99 mL/min (>90) BUN/Creatinine Ratio 26.0 (10.0-20.0) Serum Glucose 97 mg/dL (74-106) Calcium Level 9.4 mg/dL (8.7-10.4) Total Bilirubin 0.7 mg/dL (0.2-1.0) Aspartate Amino Transferase (AST) 19 U/L (13-40) Alanine Aminotransferase (ALT) 33 U/L (7-40) Alkaline Phosphatase 138 U/L (46-116) Total Protein 6.5 g/dL (5.7-8.2) Albumin 4.4 g/dL (3.2-4.8) Hemoglobin A1c 5.2 % A1C (<5.7) Triglycerides Level 113 mg/dL (< 150) Cholesterol Level 151 mg/dL (< 200) LDL Cholesterol 82 mg/dL (< 100) HDL Cholesterol 53 mg/dL (40-59) Test 06/24/24 18:51 06/24/24 18:20 06/24/24 14:23 Magnesium Level 2.2 mg/dL (1.6-2.6) Troponin I High Sensitivity 3 ng/L (</=34) Urine Color Light-yellow (Yellow) Urine Clarity Clear (Clear) Urine pH 7.5 (5.0-9.0) Urine Specific [place] 1.020 (1.001-1.035) Urine Protein Negative (Negative) Urine Ketones Negative (Negative) Urine Blood Negative /uL (Negative) Urine Nitrite Negative (Negative) Urine Bilirubin Negative (Negative) Urine Urobilinogen Normal mg/dL (Negative) Urine Leukocyte Esterase 1+ /uL (Negative) Urine RBC 3 /hpf (0 - 4) Urine WBC 4 /hpf (0 - 5) Urine Squamous Epithelial Cells Few /hpf (<5) Urine Bacteria None seen /hpf (None Seen) Urine Mucus Few (None Seen) Urine Glucose Normal mg/dL (Normal) B-Type Natriuretic Peptide 34.21 pg/mL (0-100) Other Laboratory Tests 06/26/24 04:26 Brief Hx & Hospital Course: This is a 53-year-old female with no significant past medical history who presented to the hospital with chest pain. The pain started 2 hours before coming to the ED. It was central retrosternal, pressure-like tightness, non- radiating, and rated 9/10 in severity, with no obvious exacerbating or relieving factors. The patient states the pain was associated with some shortness of breath at times. She has been having left jaw pain due to an infected tooth and has been taking ibuprofen. She noted increased shortness of breath with exertion for a couple of weeks now. The patient denies fever, cough, headache, or any other symptoms. Past Medical History: As per the patient, she was diagnosed with colon cancer via colonoscopy 1 year ago at [facility], but no records are available Past Surgical History: Full-term Family History: Noncontributory Social History: Lives with family, denies smoking, alcohol, or any drug use Home Medications: None Allergic History: Noncontributory On physical examination in the ED, there was mild chest tenderness; otherwise, the examination was within normal limits. Laboratory studies were significant for creatinine at 1.08, otherwise within normal limits. BNP was 34, and serial troponin I levels were within normal limits. EKG showed normal sinus rhythm with no significant ST or T-wave changes. Chest X-ray showed bilateral lower ground- glass opacities. During hospital admission the patient is put on ACS protocol. Condition at Discharge: Good Final Diagnosis/Problems List CHEST PAIN, RULED OUT ACS Discharge Disposition: Home Discharge Instruct/Medications Diet: Cardiac 2g Na,low cholest Activity: No Restrictions, As Tolerated Follow Up/Referral: f/u with D/C clinic-pcp within 1 weeks follow up with the cardiology within one week after discharge Medications: Tab. Aspirin 81mg daily Tab. Atorvastatin 40 mg daily Discharge Statement: "Patient was advised to return to the ER or call 911 if any headaches, dizziness, shortness of breath, chest pain, abdominal pain, bleeding, fevers, or worsening of medical condition. Patient was counseled about treatment plan, medications, possible side effects, patientverbalized understanding. All questions were answered to the best of my ability. This discharge took greater then 30 minutes in planning, reviewing documentation, counseling the patient, and discussing with other team members." ASSESSMENT ASSESSMENT Assessment CHEST PAIN, RULED OUT ACS SHA SUN Jun 27, 2024 07:05 MOLINA GARCIA MD Jun 28, 2024 05:22
[2024-06-27] MEDS ORDERED: EPINEPHrine HCL 1 MG/1 ML AMP ONE (08:30)
[2024-06-27] MEDS ORDERED: TRANEXAMIC ACID 20 ML ONE (08:30)
[2024-06-27] MEDS ORDERED: ASPI-325 PO (14:38)
[2024-06-27] MEDS ORDERED: ATOR20TA50 PO (14:38)
--- NOTE | 2024-06-27 16:56 | DVHDSRES ---
Discharge Summary Date of Admission Resident Creating Document: SHA SUN Jun 24, 2024 at 18:39 Date of Discharge: Jun 27, 2024 Admitting Diagnosis Acute chest pain Labs/Diagnostic Data: Laboratory Results Test 06/26/24 21:00 06/26/24 20:45 06/26/24 04:26 06/25/24 04:52 Urine Opiates Screen Neg (NEGATIVE) Urine Fentanyl Screen Neg (NEGATIVE) Urine Barbiturates Screen Neg (NEGATIVE) Urine Phencyclidine Screen Neg (NEGATIVE) Urine Amphetamines Screen Neg (NEGATIVE) Urine Benzodiazepines Screen Pos (NEGATIVE) Urine Cocaine Screen Neg (NEGATIVE) Urine Cannabinoids Screen Neg (NEGATIVE) SARS-CoV-2 Antigen (Rapid) Negative (NEGATIVE) White Blood Count 8.2 10^3/uL (4.4-10.8) Red Blood Count 4.64 10^6/uL (4.0-5.20) Hemoglobin 13.7 g/dL (12.2-16.2) Hematocrit 41.6 % (36.0-46.0) Mean Corpuscular Volume 89.8 fL (80.0-100.0) Mean Corpuscular Hemoglobin 29.6 pg (28.0-32.0) Mean Corpuscular Hemoglobin Concent 32.9 g/dL (32.0-36.0) Red Cell Distribution Width 13.7 % (11.8-14.3) Platelet Count 277 10^3/uL (140-450) Mean Platelet Volume 9.6 fL (6.9-10.8) Neutrophils (%) (Auto) 60.8 % (37.0-80.0) Lymphocytes (%) (Auto) 30.0 % (10.0-50.0) Monocytes (%) (Auto) 8.1 % (0.0-12.0) Eosinophils (%) (Auto) 0.8 % (0.0-7.0) Basophils (%) (Auto) 0.3 % (0.0-2.0) Neutrophils # (Auto) 5.0 10 ^3/uL (1.6-8.6) Lymphocytes # (Auto) 2.5 10 ^3/uL (0.4-5.4) Monocytes # (Auto) 0.7 10 ^3/uL (0-1.3) Eosinophils # (Auto) 0.1 10 ^3/uL (0-0.8) Basophils # (Auto) 0 10 ^3/uL (0-0.2) Nucleated Red Blood Cells 0.1 % Prothrombin Time 10.7 sec (9.3-11.8) Prothrombin Time INR 1.01 (0.9-1.15) Activated Partial Thromboplast Time 28.9 SEC (24.5-34.5) Sodium Level 139 mmol/L (136-145) Potassium Level 4.1 mmol/L (3.5-5.1) Chloride Level 106 mmol/L (98-107) Carbon Dioxide Level 27 mmol/L (20-31) Anion Gap 6 (5-15) Blood Urea Nitrogen 19 mg/dL (9-23) Creatinine 0.73 mg/dL (0.550-1.02) Glomerular Filtration Rate Calc 99 mL/min (>90) BUN/Creatinine Ratio 26.0 (10.0-20.0) Serum Glucose 97 mg/dL (74-106) Calcium Level 9.4 mg/dL (8.7-10.4) Total Bilirubin 0.7 mg/dL (0.2-1.0) Aspartate Amino Transferase (AST) 19 U/L (13-40) Alanine Aminotransferase (ALT) 33 U/L (7-40) Alkaline Phosphatase 138 U/L (46-116) Total Protein 6.5 g/dL (5.7-8.2) Albumin 4.4 g/dL (3.2-4.8) Hemoglobin A1c 5.2 % A1C (<5.7) Triglycerides Level 113 mg/dL (< 150) Cholesterol Level 151 mg/dL (< 200) LDL Cholesterol 82 mg/dL (< 100) HDL Cholesterol 53 mg/dL (40-59) Test 06/24/24 18:51 06/24/24 18:20 06/24/24 14:23 Magnesium Level 2.2 mg/dL (1.6-2.6) Troponin I High Sensitivity 3 ng/L (</=34) Urine Color Light-yellow (Yellow) Urine Clarity Clear (Clear) Urine pH 7.5 (5.0-9.0) Urine Specific [place] 1.020 (1.001-1.035) Urine Protein Negative (Negative) Urine Ketones Negative (Negative) Urine Blood Negative /uL (Negative) Urine Nitrite Negative (Negative) Urine Bilirubin Negative (Negative) Urine Urobilinogen Normal mg/dL (Negative) Urine Leukocyte Esterase 1+ /uL (Negative) Urine RBC 3 /hpf (0 - 4) Urine WBC 4 /hpf (0 - 5) Urine Squamous Epithelial Cells Few /hpf (<5) Urine Bacteria None seen /hpf (None Seen) Urine Mucus Few (None Seen) Urine Glucose Normal mg/dL (Normal) B-Type Natriuretic Peptide 34.21 pg/mL (0-100) Other Laboratory Tests 06/26/24 04:26 Brief Hx & Hospital Course: This is a 53-year-old female with no significant past medical history who presented to the hospital with chest pain. The pain started 2 hours before coming to the ED. It was central retrosternal, pressure-like tightness, non- radiating, and rated 9/10 in severity, with no obvious exacerbating or relieving factors. The patient states the pain was associated with some shortness of breath at times. She has been having left jaw pain due to an infected tooth and has been taking ibuprofen. She noted increased shortness of breath with exertion for a couple of weeks now. The patient denies fever, cough, headache, or any other symptoms. Past Medical History: As per the patient, she was diagnosed with colon cancer via colonoscopy 1 year ago at [facility], but no records are available Past Surgical History: Full-term Family History: Noncontributory Social History: Lives with family, denies smoking, alcohol, or any drug use Home Medications: None Allergic History: Noncontributory On physical examination in the ED, there was mild chest tenderness; otherwise, the examination was within normal limits. Laboratory studies were significant for creatinine at 1.08, otherwise within normal limits. BNP was 34, and serial troponin I levels were within normal limits. EKG showed normal sinus rhythm with no significant ST or T-wave changes. Chest X-ray showed bilateral lower ground- glass opacities. During hospital admission the patient was put on ACS protocol(tablet aspirin, clopidogrel, and statin in addition to anticoagulant). Cardiology was consulted, performed coronary angiography which revealed no significant lesion, recommended medical management. On 06/27/2024, the patient was feeling better since admission and did not have any active symptoms. Patient was waiting in clinically stable, discharge plan discussed with the patient and this patient was not short on tablet aspirin and atorvastatin and the patient was recommended to follow up with the PCP within 1 week of the discharge and also with the Cardiology on outpatient basis. The patient was also recommended to follow up with the GI doctor for the previous finding of cancer on colonoscopy. Physical examination on discharge: General Appearance: Alert, Oriented X3, Cooperative, No acute distress HEENT: Atraumatic, PERRLA, EOMI, Mucous membrane moist/pink Respiratory: Clear to auscultation, Normal air movement Cardiovascular: Regular rate, Normal S1, Normal S2, No murmurs, no chest wall tenderness Abdominal: Normal bowel sounds, Soft, No tenderness, No hepatosplenomegaly, No masses Extremities: No clubbing, No cyanosis, No edema, Normal pulses, No tenderness/swelling Skin: No rashes, No breakdown, No significant lesion Neuro: Normal gait, Normal speech, Strength at 5/5 X4 ext, Normal tone, Sensation intact, Cranial nerves 3-12 NL, Reflexes 2+ Psych/Mental Status: Mental status NL, Mood NL Discussed with Dr. Garcia Consults/Reason for consult Cardiology: Due to chest pain to rule out ACS Operations or Procedures Patient: RAMON WEINSTEIN Acct: [id number] : 1970 Loc: [facility] Age/Sex: 53/F Room: [facility] / Bed: B Attending Phy: KEVON MCNEILL DNP Operative Report -Cardiology Report Details Date: 06/26/24 Preop Diagnosis: Angina pectoralis. Postop Diagnosis: No significant coronary artery disease was noted in the coronary angiography that was done today. Patient might have underlying microvascular disease versus other causes of noncardiac chest pain Surgeon: Miguel A Clayton MD Anesthesiologist: Conscious sedation using25 mcg of fentanyl as well as a mg IV midazolam. It was given under direct supervision of the primary auto club safety program coordinator myself in the presence of the attending nurses. Patient was monitored for total of35 minutes without obvious complication. Anesthesia: Local Consent: The patient was informed of the risks and benefits of the procedure. These include but are not limited to complications of anesthesia, postoperative infection, incomplete relief of symptoms, recurrence of symptoms, damage to blood vessels, nerves and tendons, deep venous thrombosis, pulmonary embolism and possible need for repeat surgery in the future. Indications for Surgery: 53-year-old female with no significant past medical history presented to the hospital chest pain. Patient states that she awoke in the morning started having some retrosternal, pressure tightness, nonradiating chest pain with pounding palpitations. Patient states pain associated with some shortness of breath at times. Patient has been having left jaw pain due to infected to and has been taking ibuprofen and noted she started to have increased shortness of breath with exertion for a couple weeks now. Denies taking any medication for her heart nor having any previous cardiac workup in the past. Denies any significant family cardiac history. Patient also denies any alcohol, tobacco, or illicit drug use. Upon evaluation in the ER troponin trending normal x3. CXR negative for any cardiopulmonary disease.EKG reviewed and shows sinus rhythm at 97 beats per minute, no acute ST abnormality noted. Name of Procedure Performed 1. Left heart catheterization with left ventricular end-diastolic pressure measurement. 2. Selective right and left coronary angiography utilizing right transradial approach. 3. Conscious sedation using25 mcg of fentanyl as well as a mg IV midazolam. Procedure Details Procedure Details: Procedure note: After informed consent was obtained, risks, benefits, complications, and alternatives were discussed in details with the patient who agrees to have the procedure done. The beginning of the procedure, the right wrist and right groin area were prepped and draped in regular sterile fashion. Patient was then brought in the test lab technician with he received conscious sedation using25 mcg of fentanyl as well as a mg IV midazolam. Patient received a total of 2 cc of 1% xylocaine to the right wrist area before a six Icelandic sheath was placed using modified Seldinger technique without difficulty. A cocktail of 2.5 mg of verapamil as well as 100 mcg of nitroglycerin was given intra-arterial to prevent vasospasm findings were as follows: 1. Left heart catheterization with left ventricular end-diastolic pressure measurement: With the help of a tiger five Icelandic catheter as well as a J-tip wire we were able to cross the aortic valve measured left ventricular end-diastolic pressure which was normal at 3 mm of mercury. There was no gradient across the aortic valve on the pullback. 2. Selective right and left coronary angiography utilizing right transradial approach: 1. Right coronary artery comes off the right coronary coronary cusp, it is nondominant system it has no significant disease. 2. Left main comes off the left coronary cusp it is widely patent without significant stenosis. It bifurcates into a large left anterior descending artery and a dominant left circumflex artery. 3. The left anterior descending artery is large with a transapical course it sized large diagonal branch, it has mild minimal atherosclerotic plaquing without significant stenosis. 4. The left circumflex artery it is large dominant system it bifurcates into two large obtuse marginal branches and multiple posterolateral branches of the distal end. There was no significant atherosclerotic plaquing or stenosis. Impression and plan: 1. No significant coronary artery disease was noted in the study done today. 2. Patient might have underlying microvascular disease from longstanding diabetes mellitus and other risk factors. 3. Patient would need aggressive medical therapy for risk factors including controlling hypertension, as well as dyslipidemia and diabetes mellitus. Condition Good [facility] Clinical Frailty Scale [facility] Clinical Frailty Scale: Well Dominance Dominance: Left Disposition 2 MIGUEL A CLAYTON MD Jun 26, 2024 10:11 DICTATED BY:MIGUEL A CLAYTON MD DICTATED DATE/TIME:06/26/24 1011 ELECTRONICALLY SIGNED BY:MIGUEL A CLAYTON MD 06/26/24 1011 ELECTRONICALLY CO-SIGNED BY: [place] [id number] Ph: [phone] DIAGNOSTIC IMAGING Diagnostic Imaging Report : [id number] Signed PATIENT: RAMON WEINSTEIN ACCT: [id number] UNIT: [id number] : 1970 LOC: [facility] ROOM / BED: [address] [place] [address] AGE / SEX: 53 / F ADM STATUS: ADM IN SERVICE 38 ORDERING PHYSICIAN: KEVON MCNEILL DNP PROCEDURE(s): [facility] - ECHO 2D MODE CARDIAC DOP REASON: CHEST PAIN ORDER NUMBER(s): [id number], ACCESSION NUMBER(s): [id number] APPROVED REPORT EXAM: Two-dimensional and M-mode echocardiogram with Doppler and color Doppler. Blood Pressure: 116/68 mmHg INDICATION Chest Pain RISK FACTORS Height: 5' 6", Weight: 160 DIMENSIONS LVDd 4.4 (3.8-5.7cm) LA (2D) 3.2 (1.9-4.0cm) Aortic Root 2.8 (2.0- 3.7cm) LVDs 3.3 (2.5-4.0cm) LA (MM) (1.9-4.0cm) Aortic Cusp Exc 1.4 (1.5- 2.0cm) EF (%) 50.0 (55-70%) Rt. Atrium 3.4 (1.9-4.0cm) Asc. Aorta cm IVSd 0.9 (0.7-1.1cm) RV (D) (1.8-2.4cm) PWd 0.7 (0.7-1.1cm) Mitral Valve Mitral Mitral Stenosis E wave 1.10m/s MV Mean GR. mmHg A wave 0.90m/s MV Peak GR. mmHg E/A ratio 1.2 2D MVA cm2 Aortic Valve Aortic Valve Aortic Stenosis V1 0.60m/s AO Mean GR. 6mmHg V2 1.50m/s AO Peak GR. 10mmHg LVOT Diameter 2.0 (1.8-2.4cm) Doppler MATTHIAS 1.26cm2 Pulmonic Valve V2 0.50m/s Conclusion Normal left ventricular size and dimension. Normal left ventricular systolic function estimated ejection fraction 50%. There is a grade diastolic dysfunction. Normal right ventricular size and dimension. Normal right ventricular systolic function. Normal biatrial size and dimension. Normal aortic valve structure and function. Normal mitral valve structure and function. Normal tricuspid valve structure and function. The pulmonary valve is grossly normal. No pericardial effusion. SIGNED BY: MIGUEL A CLAYTON MD SIGNED DATE/TIME: 06/25/24 8135 CC: Condition at Discharge: Stable Final Diagnosis/Problems List Chest pain and palpitation, likely due to costochondritis Ruled out ACS ([place]) Hypertension History of Colon cancer Hyperglycemia, diabetes ruled out, Hb A1c 5.2 Hyperchloremia Discharge Disposition: Home Discharge Instruct/Medications Diet: Cardiac 2g Na,low cholest Activity: No Restrictions, As Tolerated Follow Up/Referral: f/u with D/C clinic-pcp within 1 weeks follow up with the cardiology within one week after discharge Medications: Tab. Aspirin 81mg daily Tab. Atorvastatin 40 mg daily Discharge Statement: "Patient was advised to return to the ER or call 911 if any headaches, dizziness, shortness of breath, chest pain, abdominal pain, bleeding, fevers, or worsening of medical condition. Patient was counseled about treatment plan, medications, possible side effects, patientverbalized understanding. All questions were answered to the best of my ability. This discharge took greater then 30 minutes in planning, reviewing documentation, counseling the patient, and discussing with other team members." ASSESSMENT ASSESSMENT Assessment CHEST PAIN, RULED OUT ACS Addendum Addendum Addendum I was physically present for the swan portions of the service provided to patient by THE RESIDENT. I have reviewed the documentation, discussed the case with resident and agree with the resident's documentation except as noted. Also the patient's clinical case was discussed with the patient's nurse. This medical document was created using an electronic medical record system with computerized dictation system. Although this document has been carefully reviewed, there might still be some phonetic and typographical errors. These areas are purely typographical due to imperfections of the software programs, and do not reflect any compromise in the patient's medical care. Late signature. Date of Service: Jun 27, 2024 Billing Provider: MOLINA GARCIA MD Common Visit Codes: 00441-YAV/OBS DISCH DAY >30min SHA SUN RESDIENT Jun 27, 2024 16:56 MOLINA GARCIA MD Jun 28, 2024 05:27
== END 2024-06-27 16:40 | disposition home or self-care (01) | DRG 192 ==
LOC: ER 14:03 → TELE 18:39 → TELE-WESTW 18:41 → WEST WING 06-27 06:02
PROVIDERS: ADMIT Internal Medicine; ATTEND Internal Medicine
PROC: 4A023N7 Measurement of Cardiac Sampling and Pressure, Left Heart, Percutaneous Approach (ICD-10-PCS; principal; 2024-06-26)
PROC: B211YZZ Fluoroscopy of Multiple Coronary Arteries using Other Contrast (ICD-10-PCS; 2024-06-26)
DX: M94.0 Chondrocostal junction syndrome [Tietze] (principal); E87.8 Other disorders of electrolyte and fluid balance, not elsewhere classified; E78.5 Hyperlipidemia, unspecified; I20.89 Other forms of angina pectoris; I10 Essential (primary) hypertension; Z20.822 Contact with and (suspected) exposure to COVID-19; R73.9 Hyperglycemia, unspecified; Z82.49 Family history of ischemic heart disease and other diseases of the circulatory system; Z80.3 Family history of malignant neoplasm of breast; Z79.82 Long term (current) use of aspirin; Z85.038 Personal history of other malignant neoplasm of large intestine; Z79.899 Other long term (current) drug therapy
CPT/HCPCS: 36415; 71046; 80053; 80061; 80307; 81001; 83036; 83735; 83880; 84484; 85025; 85610; 85730; 86850; 86900; 86901; 87426; 93005; 93306; 93458; 99152; 99291; G0378; J0171; J2250; Q9967